=== PATIENT | female | born 1990 | race Caucasian/White ===

== ENCOUNTER 2016-09-30 13:17 | Emergency (ER) | payer OTHER ==
[2016-09-30 14:42] LABS: HEMOGLOBIN 13.4 gm/dl (12.3-15.3); WHITE BLOOD COUNT 8.2 K/UL (4.5-11.0)
[2016-09-30 15:00] LABS: BUN/CREATININE RATIO 15 (0-10)
== END 2016-09-30 17:01 | disposition home or self-care (01) ==
LOC: ER1 13:17
PROVIDERS: Specialist/Technologist Athletic Trainer
DX: J20.9 Acute bronchitis, unspecified (principal); J45.909 Unspecified asthma, uncomplicated; F32.9 Major depressive disorder, single episode, unspecified; Z88.0 Allergy status to penicillin; Z90.49 Acquired absence of other specified parts of digestive tract; Z79.899 Other long term (current) drug therapy
CPT/HCPCS: 36415; 71250; 80053; 81001; 84703; 85025; 85379; 85610; 85730; 94664; 96361; 96374; 99284; J2930

== ENCOUNTER → 2020-11-25 | Day surgery (SDC) | payer OTHER | END | disposition home or self-care (01) | LOC: OR 06:59 | DX: K52.9 Noninfective gastroenteritis and colitis, unspecified (principal); K63.89 Other specified diseases of intestine; K64.0 First degree hemorrhoids; E66.8 Other obesity; J45.909 Unspecified asthma, uncomplicated; F17.210 Nicotine dependence, cigarettes, uncomplicated; Z88.0 Allergy status to penicillin; Z20.822 Contact with and (suspected) exposure to COVID-19; Z71.6 Tobacco abuse counseling | CPT/HCPCS: 84703; J2704; J7040 ==